=== PATIENT | male | born 1990 | race Caucasian/White ===

== ENCOUNTER 2021-06-28 13:42 | Emergency (ER) | payer SELFPAY ==
[2021-06-28 13:58] VITALS: BP 134/74; PULSE 84; RESP 18; TEMP 36.6; O2SAT 100
--- NOTE | 2021-06-28 14:10 | ED.GENADULT ---
HPI - General Adult General Chief complaint: Skin/Abscess/Foreign Body Stated complaint: Lt hand swollen,spider bite Time Seen by Provider: 06/28/21 14:10 Source: patient and RN notes reviewed Mode of arrival: ambulatory Limitations: no limitations History of Present Illness HPI narrative: 30-year-old male presents with complaints of swelling, red, painful, and itchy rash to left hand for the past 4 hours. ?Leonardo reports at approximately 10:00 AM he noticed a small brown spider running across his hand, did not feel anything biting him, about 20-30 minutes later the hand started itching, 1 hour later noticed redness and swelling. ?Reports 2.5 hours later increasing pain, redness, and swelling, took 1 Benadryl, Benadryl with little improvement. ?Denies new detergent, personal hygiene products or laundry detergents. ?No new foods or medications. ?No burning, bleeding, or drainage. ?Denies fever, chills, headaches, weakness, fatigue, myalgia, facial swelling, or tongue swelling. ?Denies dyspnea or chest pain. ?Tolerating p.o. intake. ?Tetanus vaccine up-to-date per Leonardo. Remains active. ?The patient reports he has not been diagnosed with COVID-19. ?The patient reports he is not waiting for the results of a COVID-19 lab test. ?The patient reports he does not have weakness, fatigue, or myalgia. ?The patient reports he does not have a new or worsening cough. ?The patient reports he does not have any rhinorrhea, congestion, loss of taste, sore throat, and diarrhea. ?Denies recent traveling. ?Denies concerns for COVID-19 or exposures. ?At this time, the patient is not suspected of having COVID-19. Some parts of this dictation were generated by voice recognition software and may contain typographical and/or grammatical inaccuracies. Related Data Allergies Allergy/AdvReac Type Severity Reaction Status Date / Time Bumble Bee Allergy Severe THROAT Uncoded 06/28/21 14:08 HUYEN Review of Systems Review of Systems: CONSTITUTIONAL: Denies fever, chills, sweats. EYES: Denies visual changes, redness, discharge. ENT: Denies otalgia, rhinorrhea, congestion, sore throat. CARDIOVASCULAR: Denies chest pain, palpitations, edema. RESPIRATORY: Denies dyspnea, wheezing, cough. GASTROINTESTINAL: Denies abdominal pain, nausea, vomiting, diarrhea. SKIN: Complaints of swelling, red, painful, and itchy rash to the left hand. Denies drainage. MUSCULOSKELETAL: Denies acute back pain, joint pain, or myalgia. NEUROLOGIC: Denies numbness or focal weakness. PSYCHIATRIC: Denies anxiety or depression. All systems reviewed & are unremarkable except as noted in HPI and below. [facility] Past Medical History Medical History (Updated 06/28/21 @ 14:42 by AHMET Coronel) Wrist injury Surgical History Surgical History (Updated 06/28/21 @ 14:42 by AHMET Coronel) History of surgery on left wrist Family History Family History (Updated 06/28/21 @ 14:52 by AHMET Coronel) Mother Depression Asthma Father Unknown family medical history Social History Social History (Updated 06/28/21 @ 15:13 by AHMET Coronel) Smoking status: Former smoker Tobacco type: cigarettes Second hand tobacco smoke exposure: No Smoking end date: 11/18/15 Alcohol intake: current Substance use: current Substance use type: marijuana Living arrangements: alone Occupation/Education: occupation Gender identity (if verbalized by the patient): Male Comments At time of signature, agree with the nurse past medical, surgical, social, and family history. There is no relevant family history pertinent to the presenting complaint. Exam Narrative: GENERAL: This is a well-nourished, well-developed patient, in no apparent distress. Talks in full sentences and ambulates with steady gait without dyspnea. HEAD: Normocephalic, atraumatic. EYES: PERRL. Sclera clear/white. Vision is grossly intact. THROAT: Mucous membranes moist, posterior ph
== END 2021-06-28 14:48 | disposition home or self-care (01) ==
PROVIDERS: Emergency Provider Nurse Practitioner Family
DX: T63.481A Toxic effect of venom of other arthropod, accidental (unintentional), initial encounter (principal); Z86.19 Personal history of other infectious and parasitic diseases
CPT/HCPCS: 99213; G0463

== ENCOUNTER 2023-12-02 10:13 | Emergency (ER) | payer SELFPAY ==
[2023-12-02 10:38] VITALS: BP 134/89; PULSE 88; RESP 18; TEMP 36.6; O2SAT 100
--- NOTE | 2023-12-02 10:41 | ECG_ITS ---
Measurements Intervals [place] Rate: 85 P: 40 IA: 148 QRS: 35 QRSD: 93 T: 26 QT: 331 QTc: 395 Interpretive Statements SINUS RHYTHM INCOMPLETE RIGHT BUNDLE BRANCH BLOCK DELAYED PRECORDIAL R/S TRANSITION BORDERLINE ECG NO PREVIOUS ECG AVAILABLE FOR COMPARISON Electronically Signed On 12-02-2023 11:19:01 RETORT FURNACE OPERATOR by Nathan Su D.O.
--- NOTE | 2023-12-02 10:52 | ED.CHESTPAIN ---
HPI - Chest Pain General Chief Complaint: Chest Pain Stated Complaint: sob,chest pain,congestion Source: patient Mode of arrival: ambulatory Limitations: no limitations History of Present Illness HPI narrative: 33-year-old male presented for complaint of cough, fatigue, body aches, subjective fever and chills. Onset 2 days. He endorses shortness of breath she and left chest pain. Pain is constant, rates 4/10, worse with taking deep breaths and coughing. Denies radiating pain, dizziness, heart racing, nausea vomiting, diarrhea. Taking Sudafed. Related Data Allergies Allergy/AdvReac Type Severity Reaction Status Date / Time Bumble Bee Allergy Severe THROAT Uncoded 12/02/23 10:51 HUYEN Review of Systems Review of Systems: CONSTITUTIONAL: Denies body aches, fever, chills, or sweats. EYES: Denies visual changes, redness, or discharge. ENT: Denies rhinorrhea, congestion, sore throat, or otalgia. CARDIOVASCULAR: Reports left chest pain Denies palpitations, or edema. RESPIRATORY: Reports cough, sob, denies wheezing. GASTROINTESTINAL: Denies abdominal pain, nausea, vomiting, or diarrhea. SKIN: Denies rash, itching, or wounds. MUSCULOSKELETAL: Denies back pain, joint pain, or myalgia. NEUROLOGIC: Denies headache, numbness, tingling, or weakness. All systems reviewed & are unremarkable except as noted in HPI and below PMFSH Past Medical History Medical History Wrist injury Surgical History Surgical History History of surgery on left wrist Family History Family History Mother Depression Asthma Father Unknown family medical history Social History Social History Smoking status: Former smoker Tobacco type: cigarettes Second hand tobacco smoke exposure: No Smoking end date: 11/18/15 Alcohol intake: current Substance use: current Substance use type: marijuana Living arrangements: alone Occupation/Education: occupation Gender identity (if verbalized by the patient): Male Comments At time of signature, I have reviewed and agree with nursing past medical, surgical, social and family history unless otherwise noted. Please see nursing chart for further information. There is no relevant family history pertinent to the presenting complaint Exam Narrative: GENERAL: Mildly ill-appearing, in no acute distress. EYES: EOMI. No redness or drainage. Conjunctivae normal. ENT: Mucous membranes pink and moist. No rhinorrhea. TMs normal bilaterally. Throat normal. Uvula midline. NECK: Normal AROM. Supple. CHEST: No respiratory distress. Lungs clear to all stephens. Nontender. HEART: Regular rate and rhythm. No murmur appreciated. ABDOMEN: Soft, nontender, nondistended, normal active bowel sounds. EXTREMITIES: Normal range of motion. No edema. SKIN: Warm, dry, no rash. Capillary refill normal. Normal skin turgor. NEURO: Alert and oriented x3. Gait steady. PSYCH: Normal affect. Course Course Emergency Course: Patient is aware of diagnosis, understands and agrees to treatment plan. Anticipatory guidance given. Patient agrees to follow-up as directed and is aware of reasons to seek care at the emergency department. Portions of this record may have been created with voice recognition software Level of Care: Express Care Visit Vital Signs Vital signs: Vital Signs Temperature 97.8 F 12/02/23 10:38 Pulse Rate 88 12/02/23 10:38 Respiratory Rate 18 12/02/23 10:38 Blood Pressure 134/89 12/02/23 10:38 Pulse Oximetry 100 12/02/23 10:38 Oxygen Delivery Room Air 12/02/23 10:38 Temperature 97.8 F 12/02/23 10:38 Pulse Rate 88 12/02/23 10:38 Respiratory Rate 18 12/02/23 10:38 Blood Pressure 134/89 12/02/23 10:38 Pulse Oximetry 100
== END 2023-12-02 11:44 | disposition home or self-care (01) ==
PROVIDERS: Emergency Provider Nurse Practitioner Family
DX: J40 Bronchitis, not specified as acute or chronic (principal); Z20.822 Contact with and (suspected) exposure to COVID-19; Z87.891 Personal history of nicotine dependence; F12.90 Cannabis use, unspecified, uncomplicated; I45.10 Unspecified right bundle-branch block
CPT/HCPCS: 87426; 87804; 93005; 99213; G0463